=== PATIENT | male | born 1940 | race Caucasian/White ===

== ENCOUNTER 2016-07-06 16:24 | Emergency (ER) | payer MEDICARE, BC ==
[~2016-07-06 16:24] MED LIST: ASPIR-LOW81 MG PO; ASPIRIN81 MG; CHANTIX1 MG; COMPAZINE10 M PO; COUMADIN10 MG; COUMADIN3 MG PO; DESMOPRESSIN A0.1 MG PO; DIGOXIN125 MCG; DIGOXIN250 MCG; FLOMAX0.4 MG PO; LANOXIN250 MCG PO; METOPROLOL TART50 MG; NON-ASPIRIN PA325 M1 PO; NORCO 5/325 TAB1 TAB PO; PERCOCET 5/3251 TAB PO; PRADAXA150 MG PO; PRAVACHOL20 MG; PRAVACHOL20 MG PO; TOPROL XL100 MG PO; TOPROL XL25 MG PO; TOPROL XL50 MG PO; TRAMADOL HCL50 MG PO; XARELTO20 M1 PO
[2016-07-06] MEDS ORDERED: ESCITALOPRAM OX10 M1 PO (16:48)
[2016-07-06 17:10] LABS: BASO % 0.5 % (0-2); EOS % 1.6 % (0-7); EOSINOPHIL ABSOLUTE COUNT 0.1 tho/cmm (0.0-0.7); HCT-HEMATOCRIT 43.7 % (36.0-53.5); HGB-HEMOGLOBIN 15.2 gm/dl (13.5-17.0); IMMATURE GRANULOCYTES ABSOLUTE 0.01 tho/cmm (0-0.03); IMMATURE GRANULOCYTES PERCENT 0.2 % (0-0.3); LYMPH % 27.5 % (20-45); LYMPH ABSOLUTE COUNT 1.8 tho/cmm (0.8-4.5); MCH (MEAN CORPUSCULAR HGB) 31.5 pg (28.0-32.0); MCHC MEAN CORPUSCULAR HGB CONC 34.8 % (32.0-36.0); MCV (MEAN CELL VOLUME) 90.5 fl (82.0-96.0); MEAN PLATELET VOLUME 10.6 cmc (9.4-12.4); MONO % 12.3 % (0-12); MONOCYTE ABSOLUTE COUNT 0.8 tho/cmm (0.0-1.2); NEUTROPHIL ABSOLUTE COUNT 3.7 tho/cmm (1.6-8.0); NEUTROPHIL-AUTOMATED 3.7 tho/cmm (1.6-8.0); NEUTROPHILS % 57.9 % (40-80); PLATELET COUNT 188 tho/cmm (150-450); RED BLOOD COUNT 4.83 mil/cmm (4.40-5.70); WHITE BLOOD COUNT 6.4 tho/cmm (4.0-10.0)
[2016-07-06 17:14] LABS: INR 1.1 INR (0.9-1.1); PROTHROMBIN TIME 12.4 SECONDS (9.0-13.6)
[2016-07-06 17:23] LABS: ALB/GLOB RATIO 1.2 (0.8-2.0); ALBUMIN 3.8 g/dl (3.5-5.0); ALKALINE PHOSPHATASE 79 U/L (33-138); ALT/SGPT 38 U/L (12-78); BILIRUBIN,TOTAL 0.4 mg/dl (0.0-1.5); BLOOD UREA NITROGEN 17 mg/dl (6-24); CALCIUM 8.6 mg/dl (8.5-10.5); CARBON DIOXIDE-VENOUS 24 mmol/L (22-32); CHLORIDE 109 mmol/l (96-110); CREATININE 0.99 mg/dl (0.60-1.30); GLUCOSE 104 mg/dL (70-110); SODIUM 141 mmol/L (135-145); eGFR VALUE FOR BLACK 87 mL/Min
[2016-07-06 17:25] LABS: ANION GAP 12 mmol/L (0-20); AST/SGOT 24 U/L (10-40); POTASSIUM 3.8 mmol/L (3.7-5.1)
[2016-07-06 17:35] LABS: ESR-ERYTHROCYTE SED RATE 4 mm/hr (0-20)
== END 2016-07-06 18:30 ==
LOC: EDMED 16:24
PROVIDERS: Emergency Medicine
DX: R26.2 Difficulty in walking, not elsewhere classified (principal); I48.91 Unspecified atrial fibrillation; Z79.01 Long term (current) use of anticoagulants; Z79.899 Other long term (current) drug therapy; Z85.46 Personal history of malignant neoplasm of prostate; Z87.891 Personal history of nicotine dependence; Z98.890 Other specified postprocedural states
CPT/HCPCS: J7030